=== PATIENT | female | born 1970 | race African-American/Black ===

== ENCOUNTER 2020-10-02 18:05 | Emergency (ER) | payer OTHER, SELFPAY ==
--- NOTE | ~2020-10-02 | CT_ITS ---
EXAMINATION: CT abdomen pelvis w con EXAM DATE: 10/02/2020 21:55 INDICATION: Epigastric, upper abdominal pain. TECHNIQUE: Spiral CT of the abdomen and pelvis was performed following intravenous injection of 100 m L Omnipaque 350. Axial, coronal and sagittal images of the abdomen and pelvis were reviewed. The do se-length product (DLP) for this examination was 799.65 mGy-cm. The exposure was tailored according to patient size (auto mA exposure control), and iterative reconstruction (ASIR) was used as additiona l dose reduction technique. There is no prior study for comparison. FINDINGS: The liver, spleen, adrenal glands and pancreas are unremarkable. Gallbladder is unremarkab le. No biliary obstruction. Portal and splenic veins are patent. Kidneys enhance symmetrically. Mi ld left-sided caliectasis, probably phasic-no stones or hydroureter. The uterus is unremarkable. The bladder is unremarkable. There is no retroperitoneal or pelvic lymphadenopathy. There are no findings to suggest appendicitis. There is small sliding gastroesophageal hiatal hernia . There is expected amount of colonic stool. No free intraperitoneal gas. The heart is normal in size. There are no pericardial or pleural effusions. Some small patchy regions of left lower lobe groundglass density airspace disease, could be acute bacterial or viral pneumonia. There are no oste oblastic or osteolytic lesions identified. IMPRESSION: 1. Some small patchy regions of left lower lobe airspace disease, likely acute bacterial or viral pn eumonia. 2. Small gastroesophageal hiatal hernia. Reviewed, dictated and finalized at location A. IMPRESSION: 1. Some small patchy regions of left lower lobe airspace disease, likely acute bacterial or viral pneumonia. 2. Small gastroesophageal hiatal hernia.
--- NOTE | ~2020-10-02 | XR_ITS ---
EXAMINATION: XR chest 2V EXAM DATE: 10/02/2020 18:24 INDICATION: Epigastric region chest pain. TECHNIQUE: Frontal and lateral projections of the chest obtained and reviewed. There is no prior rivas dy for comparison. FINDINGS: The lungs are clear. There are no pleural effusions. The cardiomediastinal silhouette is within normal limits. There is no pneumothorax suspected. The bones and soft tissues are unremarkab le. IMPRESSION: No acute cardiopulmonary findings. Reviewed, dictated and finalized at location A.
--- NOTE | 2020-10-02 18:10 | ECG_ITS ---
Measurements Intervals [place] Rate: 83 P: 51 ND: 124 QRS: 48 QRSD: 77 T: 26 QT: 351 QTc: 414 Interpretive Statements SINUS RHYTHM POSSIBLE LEFT ATRIAL ENLARGEMENT INCOMPLETE RIGHT BUNDLE BRANCH BLOCK BORDERLINE ST-T WAVE ABNORMALITY- ANT/INF LEADS BORDERLINE ECG Electronically Signed On 10-02-2020 20:16:59 CDT by Angel Saxena D.O.
[2020-10-02 18:24] VITALS: BP 169/99; PULSE 86; RESP 18; TEMP 36.6; O2SAT 100
[2020-10-02 18:39] LABS: Basophils Percent Auto 0.4 % (0.2-1.2); Eosinophils Percent Auto 0.5 % (0-4.4); Hematocrit 39.5 % (37.0-47.0); Hemoglobin 11.9 g/dL (12.0-15.0); Immature Granulocyte Absolute 0.01 K/mm3 (0.00-0.031); Immature Granulocyte Percent A 0.2 % (0-0.5); Lymphocytes Absolute Auto 2.84 K/mm3 (0.9-3.2); Lymphocytes Percent Auto 51.1 % (18.3-44.2); Mean Corpuscular HGB Conc 30.1 g/dl (32-36); Mean Corpuscular Hemoglobin 22.5 pg (26-34); Mean Corpuscular Volume 74.7 fl (80-100); Mean Platelet Volume 10.3 fl (7.4-10.4); Monocytes Absolute Auto 0.3 K/mm3 (0.1-0.6); Monocytes Percent Auto 5.6 % (2.6-8.5); Neutrophils Absolute Auto 2.4 K/mm3 (1.3-6.7); Neutrophils Percent Auto 42.2 % (45.5-73.1); Platelet Count Result 302 k/mm3 (150-375); Red Blood Count 5.29 M/mm3 (4.2-5.4); Red Cell Distribution Width 16.7 % (11.5-14.5); White Blood Count 5.6 K/mm3 (4.5-10.0)
[2020-10-02 18:49] LABS: Partial Thromboplastin Time 30.6 SECONDS (22.3-36.8)
[2020-10-02 18:57] LABS: INR 0.9; Prothrombin Time 12.4 Seconds (11.1-14.7)
[2020-10-02 19:01] LABS: Anion Gap 9 mmol/L (8-16); Blood Urea Nitrogen 8 mg/dL (7-17); Calcium 8.7 mg/dL (8.4-10.2); Carbon Dioxide 27 mmol/L (22-30); Chloride 106 mmol/L (98-107); Estimated CRCL calculation 76 ml/min; Estimated Glomerular Filt Rate 58; Glucose 85 mg/dL (65-110); Potassium 3.3 mmol/L (3.4-5.0); Sodium 142 mmol/L (137-145)
[2020-10-02 19:13] LABS: Troponin I < 0.012 ng/mL (0.000-0.034)
[2020-10-02 21:34] VITALS: BP 113/83; PULSE 72; RESP 18; O2SAT 100
[2020-10-02 21:57] LABS: Alanine Aminotransferase 14 U/L (4-35); Albumin Level 4.4 g/dL (3.5-5.1); Alkaline Phosphatase 67 U/L (38-126); Aspartate Amino Transferase 37 U/L (14-36); Bilirubin,Total 0.5 mg/dL (0.2-1.3); Lipase 58 U/L (23-300)
[2020-10-02] MEDS: PANTOPRAZOLE SODIUM IV 40 MG VIAL IV PUSH (22:06)
[2020-10-02] MEDS: MORPHINE SULFATE (*CRX) 4 MG/ML INJ IV PUSH (22:06)
[2020-10-02] MEDS: SODIUM CHLORIDE 0.9% IV 1,000 ML 999 ML IV CONT (22:06)
[2020-10-02 22:07] VITALS: BP 117/74; PULSE 74; RESP 18; O2SAT 100
[2020-10-02] MEDS: LORazepam INJ (*CRX) 2 MG/ML VIAL 0.5 MG IV PUSH (22:07)
[2020-10-02 22:32] LABS: Troponin I < 0.012 ng/mL (0.000-0.034)
[2020-10-02 23:08] VITALS: BP 117/86; PULSE 74; RESP 18; O2SAT 100
--- NOTE | 2020-10-02 23:27 | ED.GENADULT ---
HPI - General Adult General Chief complaint: Chest Pain Stated complaint: abd pain for 3 months, cp Time Seen by Provider: 10/02/20 21:13 History of Present Illness HPI narrative: Patient is a 50-year-old female who presents the emergency department with chief complaint of abdominal pain. Patient reports that for some time she has been having discomfort in the epigastric region the patient states she is seeing gastroenterology has had an EGD done. Patient reports that today she had some shortness of breath when she was up walking around and also as she has had a little bit of a cough. Related Data Allergies Allergy/AdvReac Type Severity Reaction Status Date / Time amoxicillin AdvReac Difficulty Verified 10/02/20 18:29 Breathing azithromycin AdvReac Difficulty Verified 10/02/20 18:29 Breathing Review of Systems Review of Systems: Narrative: A 10 system review of systems was completed on the patient and is negative except for what is stated in the HPI. Nursing and ancillary documentation was reviewed. Exam Narrative: Exam Narrative: GENERAL: Well-appearing, well-nourished, and in no acute distress. HEAD: Normocephalic, atraumatic. EYES: PERRLA and EOMI. ENT: Nares clear, no rhinorrhea or epistaxis. Mucous membranes moist. NECK: Supple. CHEST: Clear to auscultation. No respiratory distress. HEART: Regular rate and rhythm. No murmur heard. Normal peripheral pulses. ABDOMEN: Soft, tender to palpation in the epigastrium, nondistended, normal active bowel sounds. EXTREMITIES: Normal range of motion. No edema. SKIN: Warm, dry, no rash. NEURO: No focal deficits. Alert and oriented x3. PSYCH: Normal mood and affect. Course Vital Signs Vital signs: Vital Signs Temperature 36.6 C 10/02/20 18:24 Pulse Rate 86 10/02/20 18:24 Respiratory Rate 18 10/02/20 18:24 Blood Pressure 169/99 H 10/02/20 18:24 Pulse Oximetry 100 10/02/20 18:24 Temperature 36.6 C 10/02/20 18:24 Pulse Rate 83 10/03/20 00:35 Respiratory Rate 18 10/03/20 00:35 Blood Pressure 112/78 10/03/20 00:35 Pulse Oximetry 99 10/03/20 00:35 Medical Decision Making Vital Signs Vital Signs: Vital Signs Temperature 36.6 C 10/02/20 18:24 Pulse Rate 86 10/02/20 18:24 Respiratory Rate 18 10/02/20 18:24 Blood Pressure 169/99 H 10/02/20 18:24 Pulse Oximetry 100 10/02/20 18:24 Temperature 36.6 C 10/02/20 18:24 Pulse Rate 83 10/03/20 00:35 Respiratory Rate 18 10/03/20 00:35 Blood Pressure 112/78 10/03/20 00:35 Pulse Oximetry 99 10/03/20 00:35 Lab Data Result diagrams: 10/02/20 18:30 10/02/20 18:30 Labs: Lab Results 10/02/20 10/02/20 10/02/20 Range/Units 18:30 18:30 18:30 WBC 5.6 (4.5-10.0) K/mm3 RBC 5.29 (4.2-5.4) M/mm3 Hgb 11.9 L (12.0-15.0) g/dL Hct 39.5 (37.0-47.0) % MCV 74.7 L (80-100) fl MCH 22.5 L (26-34) pg MCHC 30.1 L (32-36) g/dl RDW 16.7 H (11.5-14.5) % Plt Count 302 (150-375) k/mm3 MPV 10.3 (7.4-10.4) fl Immature Gran % (Auto) 0.2 (0-0.5) % Neut % (Auto) 42.2 L (45.5-73.1) % Lymph % (Auto) 51.1 H (18.3-44.2) % [place] % (Auto) 5.6 (2.6-8.5) % Eos % (Auto) 0.5 (0-4.4) % Baso % (Auto) 0.4 (0.2-1.2) % Lymph # (Auto) 2.84 (0.9-3.2) K/mm3 [place] # (Auto) 0.3 (0.1-0.6) K/mm3 Eos # (Auto) 0.0 (0-0.3) K/mm3 Baso # (Auto) 0.0 (0.0-0.1) K/mm3 Abs Immat Gran (auto) 0.01 (0.00-0.031) K/mm3 Absolute Neuts (auto) 2.4 (1.3-6.7) K/mm3 Absolute Nucleated RBC 0.0 (0.0-0.012) K/mm3 Nucleated RBC % 0.0 (0.0-0.2) % PT 12.4 (11.1-14.7) Seconds INR 0.9 APTT 30.6 (22.3-36.8) SECONDS Sodium 142 (137-145) mmol/L Potassium 3.3 L (3.4-5.0) mmol/L Chloride 106 (98-107) mmol/L Carbon Dioxide 27 (22-30) mmol/L Anion Gap 9 (8-16) mmol/L BUN 8 (7-17) mg/dL Creatinine 1.00 (0.7-1.0) mg/dL Estim Cre
[2020-10-03 00:35] VITALS: BP 112/78; PULSE 83; RESP 18; O2SAT 99
[2020-10-03] MEDS: DOXYCYCLINE HYCLATE 100 MG TABLET PO (00:51)
== END 2020-10-03 00:52 | disposition home or self-care (01) ==
PROVIDERS: Emergency Medicine; Emergency Provider Emergency Medicine
DX: J18.9 Pneumonia, unspecified organism (principal); K29.00 Acute gastritis without bleeding
CPT/HCPCS: 36415; 71046; 74177; 80048; 80076; 83690; 84484; 85025; 85610; 85730; 93005; 96361; 96374; 96375; 99284; A9270; C9113; J2060; J2270; J7030; Q9967

== ENCOUNTER 2020-10-08 23:03 | Emergency (ER) | payer OTHER, SELFPAY ==
--- NOTE | ~2020-10-08 | XR_ITS ---
XR chest 1V portable 10/09/2020 02:32 Indication: Chest pain and cough Procedure: AP portable chest Comparison: 10/02/2020 Findings: Heart size normal. No focal air space disease, pulmonary edema, pleural effusion or suspect ed pneumothorax. No acute osseous abnormality. Impression: 1: No acute cardiopulmonary disease. Reviewed, dictated and finalized at location A. Impression: 1: No acute cardiopulmonary disease.
[2020-10-08 23:09] VITALS: BP 131/67; PULSE 89; RESP 18; TEMP 36.6; O2SAT 100
[2020-10-09] VITALS (10 sets, daily range): BP systolic 111–130; BP diastolic 73–78; PULSE 64–100; RESP 13–19; TEMP 36.7; O2SAT 99–100
--- NOTE | 2020-10-09 02:13 | ECG_ITS ---
Measurements Intervals [place] Rate: 70 P: 35 OK: 138 QRS: 48 QRSD: 79 T: 21 QT: 395 QTc: 427 Interpretive Statements SINUS RHYTHM NONSPECIFIC T-WAVE ABNORMALITY- ANT/INF LEADS BORDERLINE ECG Electronically Signed On 10-09-2020 6:32:09 CDT by Angel Saxena D.O.
[2020-10-09 03:01] LABS: Basophils Percent Auto 0.6 % (0.2-1.2); Eosinophils Absolute Auto 0.2 K/mm3 (0-0.3); Eosinophils Percent Auto 3.5 % (0-4.4); Hematocrit 36.8 % (37.0-47.0); Hemoglobin 11.2 g/dL (12.0-15.0); Immature Granulocyte Absolute 0.01 K/mm3 (0.00-0.031); Immature Granulocyte Percent A 0.2 % (0-0.5); Lymphocytes Absolute Auto 3.35 K/mm3 (0.9-3.2); Lymphocytes Percent Auto 50.5 % (18.3-44.2); Mean Corpuscular HGB Conc 30.4 g/dl (32-36); Mean Corpuscular Hemoglobin 22.6 pg (26-34); Mean Corpuscular Volume 74.2 fl (80-100); Mean Platelet Volume 10.9 fl (7.4-10.4); Monocytes Absolute Auto 0.4 K/mm3 (0.1-0.6); Monocytes Percent Auto 5.6 % (2.6-8.5); Neutrophils Absolute Auto 2.6 K/mm3 (1.3-6.7); Neutrophils Percent Auto 39.6 % (45.5-73.1); Platelet Count Result 339 k/mm3 (150-375); Red Blood Count 4.96 M/mm3 (4.2-5.4); Red Cell Distribution Width 16.3 % (11.5-14.5); White Blood Count 6.6 K/mm3 (4.5-10.0)
[2020-10-09 03:05] LABS: Prothrombin Time 12.9 Seconds (11.1-14.7)
[2020-10-09 03:06] LABS: Partial Thromboplastin Time 33.8 SECONDS (22.3-36.8)
[2020-10-09 03:23] LABS: Anion Gap 9 mmol/L (8-16); Blood Urea Nitrogen 10 mg/dL (7-17); Calcium 8.8 mg/dL (8.4-10.2); Carbon Dioxide 25 mmol/L (22-30); Chloride 105 mmol/L (98-107); Estimated Glomerular Filt Rate > 60; Glucose 87 mg/dL (65-110); Potassium 3.2 mmol/L (3.4-5.0); Sodium 139 mmol/L (137-145)
[2020-10-09 03:35] LABS: Troponin I < 0.012 ng/mL (0.000-0.034)
--- NOTE | 2020-10-09 03:43 | ED.CHESTPAIN ---
HPI - Chest Pain General Chief Complaint: Chest Pain Stated Complaint: congestion, seen here 3 days ago Time Seen by Provider: 10/09/20 02:02 Source: patient and RN notes reviewed Mode of arrival: ambulatory Limitations: no limitations History of Present Illness HPI narrative: This is a 50 year female with history of PTSD, GERD who presents for evaluation of continued congestion and chest tightness. PAtient reports she has been having mid chest tightness for at least 3 months. This tightness has been constant. She also reports intermittent nonradiating chest pressure that has been occurring for 3 months. She states her pain occurs randomly. She is also having sense of impending doom with shortness of breath. She has a mild nonproductive cough with sinus drainage and pain. She was evaluated in ED 5 days ago for these symptoms and her chronic abdominal pain . She was diagnosed with pneumonia and she was started on antibiotics. She continued to have symptoms so she came to ER. Related Data Allergies Allergy/AdvReac Type Severity Reaction Status Date / Time amoxicillin AdvReac Difficulty Verified 10/09/20 01:42 Breathing azithromycin AdvReac Difficulty Verified 10/09/20 01:42 Breathing Review of Systems Review of Systems: All systems reviewed & are unremarkable except as noted in HPI and below Constitutional: Constitutional: Denies chills and Denies fever(s) ENT: Reports nasal congestion Cardiovascular: Cardiovascular: Reports chest pain and Denies radiating jaw, neck or arm pain Respiratory: Respiratory: Reports chest congestion, Reports cough and Reports dyspnea Gastrointestinal: Gastrointestinal: Reports abdominal pain (chronic), Denies nausea and Denies vomiting Neurologic: Denies dizziness, Reports headache(s) and Denies numbness Psychiatric: Psychiatric: Reports anxiety PMFSH Past Medical History Medical History (Updated 10/09/20 @ 04:29 by Anya Zacarias MD) Chest pain Chronic abdominal pain PTSD (post-traumatic stress disorder) Social History Social History (Updated 10/09/20 @ 04:26 by Anya Zacarias MD) Smoking status: Never smoker Exam Narrative: Exam Narrative: GENERAL: Well-appearing, well-nourished, and in no acute distress. HEAD: Normocephalic, atraumatic EYES: PERRLA and EOMI, conjunctiva clear without discharge THROAT:Mucous membranes moist, NECK: Supple, without lymphadenopathy or mass RESPIRATORY: No respiratory distress, Airway patent, Respirations non-labored, Clear to auscultation without rales, rhonchi or wheeze HEART: Regular rate and rhythm. No murmur heard. Normal peripheral pulses. ABDOMEN: Soft, nontender, nondistended, normal active bowel sounds. No masses. No rebound or guarding, No organomegaly. EXTREMITIES: No edema, normal strength with full range of motion. SKIN: Warm, dry, normal color without rash NEURO: Alert and oriented x3. CN 2-12 grossly intact. No focal deficits. PSYCH: Normal mood and affect. Course Reevaluation(s) Reevaluation #1: I have discussed with patient she is low risk for heart disease. She can be evaluated for her atypical chest pain. She will continue her antibiotics and be swabbed for covid Date: 10/09/20 Time: : Vital Signs Vital signs: Vital Signs Temperature 97.8 F 10/08/20 23:09 Pulse Rate 89 10/08/20 23:09 Respiratory Rate 18 10/08/20 23:09 Blood Pressure 131/67 10/08/20 23:09 Pulse Oximetry 100 10/08/20 23:09 Temperature 98.1 F 10/09/20 04:38 Pulse Rate 65 10/09/20 04:38 Respiratory Rate 15 10/09/20 04:38 Blood Pressure 111/73 10/09/20 04:38 Pulse Oximetry 100 10/09/20 04:38 MDM - Chest Pain Medical Records Data Attestation: I reviewed the patient's medical records. Lab Data Attestation: I reviewed the patient's lab results. Result diagrams: 10/09/20 02:37 10/09/20 02:37 Labs: Lab Results 10/09/20 10/09/20 10/09/20
[2020-10-10 15:38] LABS: SARS-CoV-2 RNA PCR Positive
== END 2020-10-09 04:41 | disposition home or self-care (01) ==
PROVIDERS: Emergency Provider General Practice
DX: U07.1 COVID-19 (principal); J06.9 Acute upper respiratory infection, unspecified; R07.89 Other chest pain; R10.9 Unspecified abdominal pain; G89.29 Other chronic pain; I45.10 Unspecified right bundle-branch block; R94.31 Abnormal electrocardiogram [ECG] [EKG]
CPT/HCPCS: 36415; 71045; 80048; 84484; 85025; 85380; 85610; 85730; 93005; 99284; C9803; U0003; U0005